=== PATIENT | male | born 1985 | race Caucasian/White ===

== ENCOUNTER 2016-12-18 18:45 | Inpatient (IN) | payer OTHER ==
[~2016-12-18] VITALS: Ht 188 cm; Wt 78.0 kg
--- NOTE | ~2016-12-18 | HC ---
[facility] [place] [address] CONSULTATION Name: MT LAIRD Room #: 443-P ADM IN M.R.#: [id number] Admission: 12/18/16 Attend Phys: Edmundo Rome MD Discharge: Date of : 83 Report #: [id number] THIS REPORT FOR: //name// CC: COLLIN physician/PCP Sanju Billingsley REASON FOR CONSULTATION: I was asked to evaluate concerning right lower extremity infection. HISTORY OF PRESENT ILLNESS: The patient was a 31-year-old presents with increased pain, swelling, erythema involving his right knee and thigh. No specific trauma. Prior history of staph abscesses. Unclear if he has had MRSA. About a week ago, he developed a small fluctuant area anterior aspect of his right knee. This has subsequently worsened. He has had fever and chills. Pain increased up to his groin. REVIEW OF SYSTEMS: No headache, nausea, vomiting, diarrhea, dysuria or frequency. The patient has been living in his car for last several days to week. 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 Does smoke cigarettes. ALLERGIES: None. MEDICATIONS: As noted on his MAR, now on vancomycin. PAST MEDICAL HISTORY: Gastroesophageal reflux, pancreatitis, kidney failure in 2014, right shoulder issues, heroin overdose, MRSA as noted above. FAMILY HISTORY: Noncontributory. SOCIAL HISTORY: Drinks alcohol, smokes cigarettes and does recreational drugs. Review of systems noted above. PHYSICAL EXAMINATION: VITAL SIGNS: Afebrile, hemodynamically stable. GENERAL: He is alert, cooperative and pleasant, in no acute distress. HEENT: Unremarkable other than dentition in poor repair. NECK: Supple. LUNGS: Clear. HEART: Regular, without murmur. ABDOMEN: Soft, nontender, no hepatosplenomegaly or mass. EXTREMITIES: He had a fluctuant area with purulence evident to the lower aspect of his knee anteriorly. He had surrounding erythema, which extended up to his predominantly posterior thigh. There was erythema of the thigh and tender adenopathy in his right groin. He had tenderness and swelling in the right ankle. The patient stated that he had twisted his ankle several weeks ago. [facility] [address] [address] CONSULTATION Name: EITANMT Room #: 443-P ADM IN [facility].#: [id number] Admission: 12/18/16 Attend Phys: Edmundo Rome MD Discharge: Date of : 83 Report #: [id number] LABORATORY STUDIES: Blood cultures are negative to date. Hemoglobin 11.5, white count 11.0, platelet count 162,000. He had 3% bands. Sodium 138, potassium 4.1, bicarbonate 28, creatinine 1.0. Sed rate 28. CRP 234. Ultrasound of lower extremity negative for DVT. X-ray of the knee, no bony abnormalities. MRSA screen negative. Drug screen positive for methamphetamines, barbiturates, opioids, and marijuana. IMPRESSION: A 31-year-old with extensive drug history, now with a right prepatellar abscess and soft tissue infection, right lower extremity. Suspect methicillin-resistant Staphylococcus aureus despite his nasal screen being negative. PLAN: Recommend vancomycin. Likely need incision and drainage of his anterior abscess. Continue with leg elevation. Await final cultures. <ELECTRONICALLY SIGNED> By: Keegan Maher MD 12/21/16 0828 [id number] Keegan Maher MD /nt
--- NOTE | ~2016-12-18 | O ---
[facility] [place] [place] [address] OPERATIVE REPORT Name: MT LAIRD Carly Room #: 443-P ADM IN M.R.#: [id number] Admission: 12/18/16 Attend Phys: Edmundo Rome MD Discharge: Date of : 83 Report #: [id number] THIS REPORT FOR: //name// CC: COLLIN physician/PCP Edmundo Rome DATE OF SERVICE: 12/22/2016 SERVICE: Orthopedics. FACILITY: [facility] SURGEON: Ventura Harvey MD SHUCKER: None. PREOPERATIVE DIAGNOSIS: Right leg abscess. POSTOPERATIVE DIAGNOSIS: Right leg abscess. PROCEDURE: I and D to fascia of right leg abscess. COMPLICATIONS: None. DRAINS: None. SPECIMENS: Aerobic and anaerobic cultures. ANESTHESIA TYPE: Monitored anesthetic care. FINDINGS: 1. Gross purulence. 2. No involvement of the knee or bone. HISTORY AND INDICATIONS: The patient is a 31-year-old male who presented to the hospital with severe cellulitis and a small skin abrasion on the anterior aspect of the leg at about the level of the proximal tibia. The cellulitis improved, but the abrasion matured to a lesion and there was a subcutaneous abscess present that failed to improve. Therefore, decision was made to move forward with surgery after the risks, benefits, alternatives and indications for surgery were discussed with him in detail. Risks include but not limited to pain, bleeding, infection, injury to nerves or blood vessels, persistent pain despite surgical intervention, need for further surgery including revision, wound healing complications, and complications related to anesthesia such as stroke, heart attack, pulmonary complications, thromboembolic disease and . [facility] [address] [place] [address] OPERATIVE REPORT Name: EITANMT Room #: 443-P ADM IN M.R.#: [id number] Admission: 12/18/16 Attend Phys: Edmundo Rome MD Discharge: Date of : 83 Report #: [id number] PROCEDURE IN DETAIL: After right lower extremity was correctly identified in the preoperative holding area as the operative extremity, the patient was taken to the operating room where monitored anesthetic care was induced without complication. All bony prominences and subcutaneous nerves were padded appropriately. A tourniquet was applied to the right thigh, but was not utilized during the surgery. The patient is on antibiotics already, so prophylactic redosing was not indicated. Right lower extremity was then prepped and draped in standard sterile fashion. Time-out procedure was performed. A 1 cm incision proximally and distally was extended from the area of drainage and then blunt dissection taken down to the fascia. Purulent discharge was identified. The abscess cavity tracked very minimally to the medial side, but about 4 cm to the lateral side and this was probed and explored and purulent fluid was contained within this. This was then suctioned and a liter of irrigation was thoroughly lavaged through the wound and abscess cavity, which was thoroughly explored to ensure that there were no further pockets. This was all superficial and there was no deep penetration involving the joint. There was no other area of pathology. The wound was then packed with iodoform gauze and sterile dressing was applied. The patient was awakened from anesthesia and taken to recovery room in stable condition. There were no complications. All counts were recorded as correct. <ELECTRONICALLY SIGNED> By: Ventura Harvey MD 12/25/16 0622 [id number] Ventura Harvey MD /nt
[~2016-12-18 18:45] MED LIST: ACETAMINOPHEN-1 EAC1 PO; CARAFATE 1 GM TA1 G1 PO; CARAFATE 11 GM/10 M1 PO; PHENERGAN 25 MG25 M1 PO; PRILOSEC 10MG C10 MG; RANITIDINE HCL300 M1 PO; ZOFRAN ODT4 MG PO; ZOFRAN4 MG PO
[2016-12-18 18:46] VITALS: BP 105/74
[2016-12-18 20:50] LABS: HEMATOCRIT 42.8 % (42.0-52.0); HEMOGLOBIN 14.4 gm/dL (14.0-18.0); MCH 29.7 pg (26.0-34.0); MCHC 33.6 g/dL (28.0-37.0); MCV 88.5 fL (80.0-100.0); PLATELET COUNT 223 thou/uL (150-400); RBC 4.84 mil/uL (4.50-6.00); RDW 13.8 % (10.5-14.5); WBC 17.7 thou/uL (4.0-11.0)
[2016-12-18 20:51] LABS: MANUAL DIFF YES
[2016-12-18 20:54] LABS: CALCIUM 9.3 mg/dL (8.5-10.1); CREATININE 1.4 mg/dL (0.7-1.3); POTASSIUM 3.5 mmol/L (3.5-5.1)
[2016-12-18 21:17] LABS: ABSOLUTE NEUTROPHILS 14.9 thou/uL (1.4-8.2); TOTAL CELL COUNT 100
[2016-12-18 21:18] LABS: ANISOCYTOSIS 1+; POLYCHROMASIA OCCASIONAL
[2016-12-18 21:56] VITALS: BP 110/70
[2016-12-18 23:40] VITALS: BP 123/82
[2016-12-19 05:15] VITALS: BP 106/63
[2016-12-19 06:32] LABS: HEMATOCRIT 36.9 % (42.0-52.0); MCH 29.6 pg (26.0-34.0); MCHC 33.7 g/dL (28.0-37.0); RBC 4.2 mil/uL (4.50-6.00); RDW 13.7 % (10.5-14.5)
[2016-12-19 06:36] LABS: HEMOGLOBIN 12.4 gm/dL (14.0-18.0)
[2016-12-19 07:00] LABS: AMP/METHAMP POSITIVE (Negative); BARBITURATES POSITIVE (Negative); BENZODIAZEPINES Negative (Negative); COCAINE Negative (Negative); METHADONE Negative (Negative); OPIATES POSITIVE (Negative); PCP Negative (Negative); THC POSITIVE (Negative)
[2016-12-19 07:10] LABS: ALBUMIN 2.8 g/dL (3.4-5.0); CALCIUM 8.3 mg/dL (8.5-10.1); DIRECT BILIRUBIN 0.2 mg/dL (<0.1-0.3); POTASSIUM 3.9 mmol/L (3.5-5.1); TOTAL BILIRUBIN 0.6 mg/dL (<0.1-1.0); TOTAL PROTEIN 5.3 g/dL (6.4-8.2)
[2016-12-19 08:32] VITALS: BP 103/59
[2016-12-19 17:41] VITALS: BP 106/62
[2016-12-19 19:25] VITALS: BP 108/61
[2016-12-20 04:03] VITALS: BP 115/65
[2016-12-20 08:22] VITALS: BP 92/50
[2016-12-20 09:08] LABS: HEMOGLOBIN 11.5 gm/dL (14.0-18.0); MCH 29.6 pg (26.0-34.0); MCV 87.2 fL (80.0-100.0); PLATELET COUNT 162 thou/uL (150-400); RDW 13.7 % (10.5-14.5)
[2016-12-20 09:14] LABS: MANUAL DIFF YES
[2016-12-20 09:16] LABS: CALCIUM 8.4 mg/dL (8.5-10.1); POTASSIUM 4.1 mmol/L (3.5-5.1)
[2016-12-20 10:39] LABS: ABSOLUTE NEUTROPHILS 9.5 thou/uL (1.4-8.2); PLATELET ESTIMATE NORMAL; TOTAL CELL COUNT 100
[2016-12-20 16:40] VITALS: BP 109/59
[2016-12-20 20:08] VITALS: BP 104/63
[2016-12-21 06:06] VITALS: BP 97/64
[2016-12-21 06:07] LABS: HEMOGLOBIN 11.4 gm/dL (14.0-18.0); MCH 30.1 pg (26.0-34.0); MCHC 34.6 g/dL (28.0-37.0); RBC 3.8 mil/uL (4.50-6.00); RDW 13.5 % (10.5-14.5); WBC 9.6 thou/uL (4.0-11.0)
[2016-12-21 06:38] LABS: CALCIUM 8.8 mg/dL (8.5-10.1); CREATININE 0.9 mg/dL (0.7-1.3); POTASSIUM 3.9 mmol/L (3.5-5.1)
[2016-12-21 08:00] VITALS: BP 99/63
[2016-12-21 16:00] VITALS: BP 103/61
[2016-12-21 19:50] VITALS: BP 129/93
[2016-12-22 08:00] VITALS: BP 111/62
[2016-12-22] MEDS ORDERED: ZYVOX600 MG PO (12:33)
[2016-12-22 16:00] VITALS: BP 109/67
[2016-12-23 04:07] LABS: CALCIUM 8.6 mg/dL (8.5-10.1); CREATININE 1.1 mg/dL (0.7-1.3); POTASSIUM 3.6 mmol/L (3.5-5.1)
[2016-12-23 04:10] VITALS: BP 124/68
[2016-12-23 04:10] LABS: HEMATOCRIT 35.8 % (42.0-52.0); HEMOGLOBIN 12.2 gm/dL (14.0-18.0); MCH 29.7 pg (26.0-34.0); MCHC 34.2 g/dL (28.0-37.0); MCV 86.7 fL (80.0-100.0); RBC 4.13 mil/uL (4.50-6.00); RDW 13.3 % (10.5-14.5); WBC 8.5 thou/uL (4.0-11.0)
[2016-12-23 08:00] VITALS: BP 98/61
[2016-12-23 16:00] VITALS: BP 99/54
[2016-12-23 20:00] VITALS: BP 116/68
[2016-12-24 05:00] VITALS: BP 106/63
[2016-12-24 08:00] VITALS: BP 99/64
[2016-12-24 20:50] VITALS: BP 103/57
[2016-12-25 03:10] VITALS: BP 109/71
[2016-12-25 08:00] VITALS: BP 108/64
[2016-12-25 14:53] VITALS: BP 108/64
[2016-12-25 15:09] VITALS: BP 108/64
== END 2016-12-25 18:05 | disposition home or self-care (01) | DRG 580 ==
LOC: ER 18:45 → EROBS 21:30 → 4S 21:30
PROVIDERS: Emergency Medicine; Family Medicine; Nurse Practitioner Acute Care
PROC: 0J9N0ZZ Drainage of Right Lower Leg Subcutaneous Tissue and Fascia, Open Approach (ICD-10-PCS; principal; 2016-12-22)
DX: L03.115 Cellulitis of right lower limb (principal); N17.9 Acute kidney failure, unspecified; R65.10 Systemic inflammatory response syndrome (SIRS) of non-infectious origin without acute organ dysfunction; L02.415 Cutaneous abscess of right lower limb; K21.9 Gastro-esophageal reflux disease without esophagitis; F17.210 Nicotine dependence, cigarettes, uncomplicated; F19.10 Other psychoactive substance abuse, uncomplicated; B95.62 Methicillin resistant Staphylococcus aureus infection as the cause of diseases classified elsewhere; Z79.899 Other long term (current) drug therapy; Z86.14 Personal history of Methicillin resistant Staphylococcus aureus infection; Z71.6 Tobacco abuse counseling
CPT/HCPCS: 10195; 50010; 50101; 50386; 57091; 62110; 62850; 70005

== ENCOUNTER 2016-12-28 15:59 | Emergency (ER) | payer OTHER ==
[~2016-12-28] VITALS: Ht 188 cm; Wt 77.1 kg
[~2016-12-28 15:59] MED LIST changes: +ZYVOX600 MG PO
== END 2016-12-28 17:02 | disposition home or self-care (01) ==
LOC: ER 15:59
DX: Z48.00 Encounter for change or removal of nonsurgical wound dressing (principal); K21.9 Gastro-esophageal reflux disease without esophagitis; N17.9 Acute kidney failure, unspecified; F17.210 Nicotine dependence, cigarettes, uncomplicated; F10.99 Alcohol use, unspecified with unspecified alcohol-induced disorder